=== PATIENT | female | born 1970 ===

== ENCOUNTER 2017-08-17 00:11 | Emergency (ER) | payer MEDICAID ==
[2014-11-12 00:09] VITALS: BMI 31.8
[2017-08-17 00:39] VITALS: BP 134/73; PULSE 82; RESP 18; TEMP 99.4; O2SAT 98
--- NOTE | 2017-08-17 11:20 | RAD ---
PROCEDURE: Radiographs of the Right Shoulder HISTORY: PAIN COMPARISON: No prior. FINDINGS: BONES: No evidence of acute displaced fracture or dislocation. 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 . Suspect minimal degenerative osteoarthritis right glenohumeral joint. SOFT TISSUES: Normal. OTHER FINDINGS: None. IMPRESSION: No evidence of acute displaced fracture nor dislocation. Mild DJD as above
== END 2017-08-17 10:00 | disposition home or self-care (01) ==
LOC: H.ER 00:11
DX: S46.902A Unspecified injury of unspecified muscle, fascia and tendon at shoulder and upper arm level, left arm, initial encounter (principal)